=== PATIENT | female | born 1955 | race Caucasian/White ===

== ENCOUNTER 2019-02-21 19:29 | Emergency (ER) | payer BC ==
[2019-02-21] MEDS ORDERED: SODIUM CHLORIDE 1,000 ML IV STA (19:45)
[2019-02-21] MEDS ORDERED: ONDANSETRON 4 MG/2 ML VIAL IVPB ONE (19:45)
[2019-02-21] MEDS ORDERED: ACETAMINOPHEN 1000 MG/100 ML VIAL (NON FORMULARY) IVPB ONE (19:45)
[2019-02-21 20:00] VITALS: BP 129/66; PULSE 72; TEMP 97.9; BMI 32.3
--- NOTE | 2019-02-21 20:02 | PDOC ---
History of Present Illness - History of Present Illness Initial Comments: 02/21/19 20:09 PCP: Cande Watters <Milli Zhang - Last Filed: 02/21/19 20:08> - History of Present Illness Initial Comments: 02/21/19 19:56 The patient is a 63 year old female with a past medical history of bipolar disorder who presents to the ED with 4 hours of R upper abdominal pain. The patient describes her abdominal as 8/10, constant pain. The patient endorses chills, mild nausea, but no vomiting. Denies diarrhea or constipation.. The patient notes her last normal bowel movement was yesterday. The patient notes that she had ricotta cheese and applesauce for lunch, but the pain is not associated with eating. The patient denies taking pain medications. The patient denies chest pain, shortness of breath, headache or dizziness. The patient denies fever, vomit, diarrhea or constipation. The patient denies dysuria, frequency, urgency or hematuria. Allergies: NKDA Past surgical history: L hip replacement (2004), Bilateral bone spurs (feet), 1 , and Tonsillectomy. Social history: Former tobacco use. Former alcohol use. PCP: <Jamaal Link - Last Filed: 02/21/19 23:10> - General Chief Complaint: Pain Stated Complaint: ABDOMINAL PAIN Time Seen by Provider: 02/21/19 19:32 Past History <Milil Zhang - Last Filed: 02/21/19 20:08> - Past Medical History COPD: No Psychiatric Problems: Yes (BIPOLAR) - Suicide/Smoking/Psychosocial Hx Smoking History: Former smoker Have you smoked in the past 12 months: No If you are a former smoker, when did you quit?: 40 YEARS Information on smoking cessation initiated: No Hx Alcohol Use: No Drug/Substance Use Hx: No <Jamaal Link - Last Filed: 02/21/19 23:10> - Past Medical History Allergies/Adverse Reactions: Allergies Allergy/AdvReac Type Severity Reaction Status Date / Time No Known Allergies Allergy Unverified 02/21/19 19:43 Home Medications: Ambulatory Orders Bupropion HCl [Wellbutrin -] 75 mg PO DAILY 02/21/19 Lamotrigine [Lamictal] 25 mg PO DAILY 02/21/19 [place] Carbonate [Eskalith -] 150 mg PO HS 02/21/19 Review of Systems - Review of Systems Comments:: 02/21/19 19:58 GENERAL/CONSTITUTIONAL: (+) chills. No fever. No weakness. HEAD, EYES, EARS, NOSE AND THROAT: No change in vision. No ear pain or discharge. No sore throat. CARDIOVASCULAR: No chest pain, no shortness of breath, no loss of consciousness RESPIRATORY: No cough, wheezing, or hemoptysis. GASTROINTESTINAL: (+) RUQ pain, mild nausea. No vomiting, diarrhea or constipation. GENITOURINARY: No dysuria, frequency, or change in urination. MUSCULOSKELETAL: No joint or muscle swelling or pain. No neck pain. SKIN: No rash NEUROLOGIC: No vertigo, no change in strength/sensation. ENDOCRINE: No increased thirst. No abnormal weight change. HEMATOLOGIC/LYMPHATIC: No anemia, easy bleeding, or history of blood clots. ALLERGIC/IMMUNOLOGIC: No hives or skin allergy. <Jamaal Link - Last Filed: 02/21/19 23:10> *Physical Exam - Vital Signs Last Vital Signs Temp Pulse Resp BP Pulse Ox 97.9 F 72 16 129/66 97 02/21/19 19:31 02/21/19 19:31 02/21/19 19:31 02/21/19 19:31 02/21/19 19:31 <Milli Zhang - Last Filed: 02/21/19 20:08> - Vital Signs Last Vital Signs Temp Pulse Resp BP Pulse Ox 97.9 F 72 16 129/66 97 02/21/19 19:31 02/21/19 19:31 02/21/19 19:31 02/21/19 19:31 02/21/19 19:31 - Physical Exam Comments: 02/21/19 19:58 GENERAL: Awake, alert, and fully oriented, in no acute distress. HEAD: No signs of trauma EYES: PERRLA, EOMI, sclera anicteric, conjunctiva clear ENT: Auricles normal inspection, hearing grossly normal, nares patent, oropharynx clear without exudates. Moist mucosa NECK: Nontender, no stepoffs, Normal ROM, supple, no lymphadenopathy, JVD, or masses LUNGS: Breath sounds equal, clear to auscultation bilaterally. No wheezes, and no crackles HEART: Regular rate and rhythm, normal S1 and S2, no murmurs, rubs or gallops ABDOMEN: + RUQ and epigastric TTP, + sam's, normoactive bowel sounds. No guarding, no rebound. No masses EXTREMITIES: Normal range of motion, no edema. No clubbing or cyanosis. No cords, erythema, or tenderness NEUROLOGICAL: Cranial nerves II through XII intact. 5/5 strength and sensation in all extremities, Normal speech, normal gait, normal cerebellar function SKIN: Warm, Dry, normal turgor, no rashes or lesions noted. <Ou,Jamaal - Last Filed: 02/21/19 23:10> Heart Score/ECG Review - ECG Impressions Comment:: 02/21/19 20:02 NSR, no MARTI/STDs, no TWIs, axis wnl, intervals wnl, rate 75 <Ou,Jamaal - Last Filed: 02/21/19 23:10> ED Treatment Course - LABORATORY CBC & Chemistry Diagram: 02/21/19 20:00 02/21/19 20:00 - RADIOLOGY Radiology Studies Ordered: Category Date Time Status ABDOMEN US [US] Stat Ultrasound 02/21/19 19:50 Ordered <Ou,Jamaal - Last Filed: 02/21/19 23:10> Medical Decision Making - Medical Decision Making 02/21/19 19:59 63 F with RUQ pain, + sam's on exam. Will evaluate for biliary colic. Also consider gastritis vs PUD vs pancreatitis given epigastric tenderness. Low suspicion for appendicitis/colitis/diverticulitis given no lower abdominal tenderness. Will r/o ACS with single trop given duration of pain x6 hours, though very unlikely as EKG is normal. - Labs, lipase - RUQ sono - IVF, zofran, tylenol 02/21/19 22:21 Labs notable for WBC 18 LFTs and bilis wnl 02/21/19 22:50 US negative for acute harley Pt reassessed - now with significant improvement in pain. Exam now with only mild epigastric TTP. Low suspicion for appy/colitis/diverticulitis. However, given elevated WBC, pt advised that if her pain does not subside or worsens, she should return to ER for CT scan. Pt is well appearing, with normal vitals. Clinically stable for DC at this time. I discussed the physical exam findings, ancillary test results and final diagnoses with the patient. I answered all of the patient's questions. The patient was satisfied with the care received and felt comfortable with the discharge plan and treatment plan. The patient agrees to follow up with the primary care physician within 24-72 hours. <Jamaal Link - Last Filed: 02/21/19 23:10> *DC/Admit/Observation/Transfer - Attestations Scribe Attestion: 02/21/19 20:10 Documentation prepared by Milli Zhang, acting as clinical laboratory medical director for Jamaal Link MD, MD <Milli Zhang - Last Filed: 02/21/19 20:08> - Attestations Physician Attestion: 02/21/19 22:54 I, Dr. Jamaal Likn MD, attest that this document has been prepared under my direction and personally reviewed by me in its entirety. I further attest, that it accurately reflects all work, treatment, procedures and medical decision -making performed by me. <Jamaal Link - Last Filed: 02/21/19 23:10> Diagnosis at time of Disposition: Epigastric pain - Discharge Dispostion Disposition: HOME Condition at time of disposition: Stable - Referrals Referrals: Jc Morel MD [Primary Care Provider] - Benton Choi MD [Staff Physician] - - Patient Instructions Printed Discharge Instructions: DI for Abdominal Pain-Adult Additional Instructions: Your ultrasound today was notable for a small amount of "sludge". This is unlikely to be the cause of your pain. Please follow up with a special needs caregiver within 1 week for further evaluation of your abdominal pain. Call the number provided to make an appointment. If you experience any worsening pain, nausea, vomiting, fevers, or any other concerning symptoms, return to the ER immediately. Your labwork today showed an elevated white blood cell count. While this in itself is not necessarily concerning, you should have it rechecked by your primary doctor.
[2019-02-21] MEDS ORDERED: ONDANSETRON 4 MG/2 ML VIAL ONE (20:16)
[2019-02-21] MEDS ORDERED: ACETAMINOPHEN INJECTION 100 ML IVPB ONE (20:16)
[2019-02-21 20:21] LABS: HEMOGLOBIN 13.3 GM/dl (10.7-15.3)
[2019-02-21 20:24] LABS: HEMATOCRIT 40.2 % (32.4-45.2); MCH 30.4 pg (25.7-33.7); MCHC 33.1 g/dl (32.0-36.0); MEAN PLT VOLUME 9.9 fl (7.5-11.1); PLATELET COUNT 261 K/MM3 (134-434); RBC 4.37 M/mm3 (3.60-5.2); RDW 12.6 % (11.6-15.6); WHITE BLOOD COUNT 18.1 K/mm3 (4.0-10.8)
[2019-02-21 20:36] LABS: ALBUMIN 4.4 g/dl (3.4-5.0); ALK PHOS 75 U/L (45-117); ANION GAP 11 MMOL/L (8-16); BILIRUBIN,TOTAL 0.7 mg/dl (0.2-1); BLOOD UREA NITROGEN 21 mg/dl (7-18); CHLORIDE 101 mmol/L (98-107); CO2 21 mmol/L (21-32); CREATININE 1.2 mg/dl (0.55-1.3); GLUCOSE,RANDOM 129 mg/dl (74-106); POTASSIUM 3.8 mmol/L (3.5-5.1); SGOT/AST 19 U/L (15-37); SGPT/ALT 22 U/L (13-61); SODIUM 133 mmol/L (136-145); TOT PROT 6.7 g/dl (6.4-8.2)
[2019-02-21 21:16] LABS: PLATELET ESTIMATE ADEQUATE
[2019-02-21 21:45] LABS: LIPASE 107 U/L (73-393)
[2019-02-21] MEDS ORDERED: FAMOTIDINE 20 MG/50 ML IVPB 20 MG/50 ML MG IVPB ONE ×2 (21:50→22:02)
[2019-02-21] MEDS ORDERED: MAG HYDROX/AL HYDROX/SIMETH 30 ML UNIT-DOSE CUP ONE (22:59)
[2019-02-21] MEDS ORDERED: MAG HYDROX/AL HYDROX/SIMETH 30 ML UNIT-DOSE CUP PO ONE (22:59)
--- NOTE | 2019-02-22 10:46 | EKG ---
Test Reason : Blood Pressure : / mmHG Vent. Rate : 075 BPM Atrial Rate : 075 BPM P-R Int : 168 ms QRS Dur : 090 ms QT Int : 410 ms P-R-T Axes : 046 022 041 degrees QTc Int : 457 ms NORMAL SINUS RHYTHM NORMAL ECG NO PREVIOUS ECGS AVAILABLE Confirmed by NATO LOPEZ MD ([id number]) on 02/22/2019 10:46:30 AM Referred By: DR RAM Confirmed By:NATO LOPEZ MD
== END 2019-02-21 23:07 | disposition home or self-care (01) ==
LOC: SUPCPDRO 19:29 → FER 19:29
PROC: 3E0337Z Introduction of Electrolytic and Water Balance Substance into Peripheral Vein, Percutaneous Approach (ICD-10-PCS; principal; 2019-02-21)
PROC: 3E033GC Introduction of Other Therapeutic Substance into Peripheral Vein, Percutaneous Approach (ICD-10-PCS; 2019-02-21)
PROC: 3E033NZ Introduction of Analgesics, Hypnotics, Sedatives into Peripheral Vein, Percutaneous Approach (ICD-10-PCS; 2019-02-21)
DX: R10.13 Epigastric pain (principal); Z87.891 Personal history of nicotine dependence; F31.9 Bipolar disorder, unspecified
CPT/HCPCS: 36415; 76700-TC; 80053; 82550; 83690; 84484; 85025; 93005; 99282-25; J0131; J7030

== ENCOUNTER 2023-02-27 15:25 | Emergency (ER) | payer BC, OTHER ==
[2023-02-27 15:48] VITALS: BMI 32.3
[2023-02-27] MEDS ORDERED: FAMOTIDINE 20 MG/50 ML IVPB 20 MG in PREMIX 50 IVPB ONE (15:53)
[2023-02-27] MEDS ORDERED: FAMOTIDINE 20 MG/50 ML IVPB 20 MG/50 ML MG IVPB ONE (16:04)
[2023-02-27 16:34] LABS: HEMATOCRIT 35.9 % (32.4-45.2); HEMOGLOBIN 12.5 G/dL (10.7-15.3); MCH 31.6 pg (25.7-33.7); MCHC 34.8 g/dl (32.0-36.0); MEAN CELL VOLUME 90.8 fl (80-96); MEAN PLT VOLUME 9.7 fl (7.5-11.1); PLATELET COUNT 234.9 10^3/uL (134-434); RBC 3.95 10^6/uL (3.60-5.2); RDW 14.2 % (11.6-15.6); WHITE BLOOD COUNT 5.7 10^3/uL (4.0-10.8)
[2023-02-27 16:43] LABS: ALBUMIN 4.2 g/dl (3.4-5.0); BILIRUBIN,TOTAL 0.6 mg/dl (0.2-1); CALCIUM 9.3 mg/dl (8.5-10); TOT PROT 6.5 g/dl (6.4-8.2)
[2023-02-27 16:46] LABS: PLATELET ESTIMATE ADEQUATE
[2023-02-27] MEDS ORDERED: DOCUSATE SODIUM 100 MG CAPSULE (FP) PO PRN (19:54)
[2023-02-27 20:14] LABS: MAGNESIUM 2.1 mg/dL (1.8-2.4); PHOSPHOROUS 3.9 mg/dl (2.5-4.9)
[2023-02-27 20:58] VITALS: BP 146/80; RESP 15; TEMP 97.8
[2023-02-27 21:06] VITALS: PULSE 72
== END 2023-02-27 22:12 | disposition home or self-care (01) ==
LOC: FER 15:25
PROC: 3E033GC Introduction of Other Therapeutic Substance into Peripheral Vein, Percutaneous Approach (ICD-10-PCS; principal; 2023-02-27)
DX: R06.09 Other forms of dyspnea (principal); R11.0 Nausea; R12 Heartburn; Z20.822 Contact with and (suspected) exposure to COVID-19
CPT/HCPCS: 0241U-QW; 36415; 71046-TC-FY; 71275-TC; 80053; 81003; 81015; 83735; 83880; 84100; 84484; 85027; 85379; 93005; 96365; 99285-25; Q9967

== ENCOUNTER 2023-10-15 10:35 | Emergency (ER) | payer OTHER ==
[2023-10-15 10:56] VITALS: BP 125/92; PULSE 74; RESP 18; TEMP 98.3; BMI 32.3
[2023-10-15] MEDS ORDERED: ALBUTEROL SO4 2.5/IPRATROPIUM 0.5 INH SOL 3 ML VIAL.NEB. NEB ONE ×2 (11:01→11:06)
[2023-10-15 12:10] LABS: HEMATOCRIT 38.4 % (32.4-45.2); MCH 30.9 pg (25.7-33.7); MCHC 33.9 g/dl (32.0-36.0); MEAN CELL VOLUME 91.1 fl (80-96); MEAN PLT VOLUME 9.6 fl (7.5-11.1); PLATELET COUNT 260.5 10^3/uL (134-434); RBC 4.22 10^6/uL (3.60-5.2); RDW 14.6 % (11.6-15.6); WHITE BLOOD COUNT 8.2 10^3/uL (4.0-10.8)
[2023-10-15 12:12] LABS: ALBUMIN 4.5 g/dl (3.4-5.0); ALK PHOS 108 U/L (45-117); ANION GAP 9 mmol/L (4-13); BILIRUBIN,TOTAL 0.4 mg/dl (0.2-1); CALCIUM 9.9 mg/dl (8.5-10.1); CHLORIDE 106 mmol/L (98-107); CO2 25 mmol/L (21-32); CREATININE 1.1 mg/dl (0.6-1.3); GLUCOSE,RANDOM 120 mg/dl (74-106); POTASSIUM 4.4 mmol/L (3.5-5.1); SGOT/AST 13 U/L (15-37); SGPT/ALT 18 U/L (7-52); SODIUM 140 mmol/L (136-145); TOT PROT 6.6 g/dl (6.4-8.2)
[2023-10-15 12:40] LABS: PLATELET ESTIMATE ADEQUATE
== END 2023-10-15 12:50 | disposition home or self-care (01) ==
LOC: FER 10:35
PROC: 3E0F7GC Introduction of Other Therapeutic Substance into Respiratory Tract, Via Natural or Artificial Opening (ICD-10-PCS; principal; 2023-10-15)
DX: R05.9 Cough, unspecified (principal); R50.9 Fever, unspecified; R07.9 Chest pain, unspecified; Z20.822 Contact with and (suspected) exposure to COVID-19
CPT/HCPCS: 0241U-QW; 36415; 71046-TC-FY; 80053; 84484; 85027; 93005; 94640; 99285-25

== ENCOUNTER 2024-08-14 15:08 | Emergency (ER) | payer OTHER ==
[2024-08-14 15:32] VITALS: RESP 18; TEMP 98.2; BMI 33.2
[2024-08-14] MEDS ORDERED: METOCLOPRAMIDE HCL INJECTION 10 MG/2 ML VIAL ONE (17:02)
[2024-08-14] MEDS ORDERED: ACETAMINOPHEN INJECTION 100 ML ONE (17:02)
[2024-08-14 17:07] LABS: BASO % 0.9 % (0-2.0); EOS % 3.6 % (0-4.5); HEMATOCRIT 39.6 % (32.4-45.2); HEMOGLOBIN 13.1 GM/dL (10.7-15.3); LYMPH % 24.4 % (8-40); MCH 30.2 pg (25.7-33.7); MCHC 33.1 g/dl (32.0-36.0); MEAN CELL VOLUME 91.3 fl (80-96); MEAN PLT VOLUME 8.7 fl (7.5-11.1); MONO % 9.1 % (3.8-10.2); PLATELET COUNT 253 10^3/uL (134-434); RBC 4.34 M/mm3 (3.60-5.2); RDW 13.6 % (11.6-15.6); WHITE BLOOD COUNT 6.6 K/mm3 (4.0-10.0)
[2024-08-14 17:14] LABS: INR 0.96 (0.83-1.09); PROTHROMBIN TIME (PATIENT) 11.1 SEC (9.7-13.0)
[2024-08-14 17:16] LABS: ACTIVATED PTT 30.5 SECONDS (25.2-36.5)
[2024-08-14 17:26] LABS: POTASSIUM 4.3 mmol/L (3.5-5.1)
[2024-08-14 17:28] LABS: BLOOD UREA NITROGEN 17.9 mg/dL (7-18); CALCIUM 9.7 mg/dL (8.5-10.1); MAGNESIUM 2.3 mg/dL (1.8-2.4)
[2024-08-14] MEDS: ACETAMINOPHEN 1000 MG/100 ML BAG IVPB ONE (17:32)
[2024-08-14] MEDS: SODIUM CHLORIDE 0.9% 500 ML INFUS.BAG IV ONE (17:32)
[2024-08-14 17:33] LABS: BILIRUBIN,TOTAL 0.5 mg/dL (0.2-1); TOT PROT 6.9 g/dl (6.4-8.2)
[2024-08-14] MEDS: METOCLOPRAMIDE HCL INJECTION 10 MG/2 ML VIAL IVPB ONE (17:33)
[2024-08-14 18:22] LABS: HIV INTERPRETATION NEGATIVE (NEGATIVE)
[2024-08-14 20:09] LABS: EPI CELLS 5 /uL (0-25.1); HYALINE CASTS 4 /uL (0-3.1); PH,URINE 5.5 (5.0-8.0); URINE APPEARANCE CLEAR; URINE BACTERIA 15 /uL (0-1359); URINE BILIRUBIN NEGATIVE (NEGATIVE); URINE COLOR YELLOW; URINE GLUCOSE (UA) NEGATIVE (NEGATIVE); URINE KETONE TRACE (NEGATIVE); URINE LEUK ESTERASE TRACE (NEGATIVE); URINE NITRITE NEGATIVE (NEGATIVE); URINE PROTEIN NEGATIVE (NEGATIVE); URINE RBC 50 /uL (0-23.9); URINE UROBILINOGEN 0.2 mg/dL (0.2-1.0); URINE WBC 531 /uL (0-25.8)
[2024-08-14 22:45] VITALS: BP 125/70; PULSE 68
== END 2024-08-14 22:45 | disposition home or self-care (01) ==
LOC: JER 15:08
PROC: 3E033NZ Introduction of Analgesics, Hypnotics, Sedatives into Peripheral Vein, Percutaneous Approach (ICD-10-PCS; principal; 2024-08-14)
PROC: 3E033GC Introduction of Other Therapeutic Substance into Peripheral Vein, Percutaneous Approach (ICD-10-PCS; 2024-08-14)
DX: R51.9 Headache, unspecified (principal); R11.0 Nausea; R42 Dizziness and giddiness; R53.1 Weakness; Z20.822 Contact with and (suspected) exposure to COVID-19
CPT/HCPCS: 0241U-QW; 36415; 70450-TC; 71045-TC-FY; 80053; 81003; 83735; 84439; 84443; 84484; 85025; 85610; 85730; 86803; 86850; 86900; 86901; 87086; 87186; 87389; 93005; 93010; 99285-25; J0131